=== PATIENT | female | born 1930 | race Two or more races ===

== ENCOUNTER 2018-01-24 14:29 | Emergency (ER) | payer OTHER ==
[~2018-01-24] VITALS: Ht 149.9 cm; Wt 59.0 kg
[~2018-01-24 14:29] MED LIST: COZAAR50 MG PO
== END 2018-01-24 19:53 | disposition home or self-care (01) ==
LOC: ER 14:29
DX: S81.822A Laceration with foreign body, left lower leg, initial encounter (principal); S00.83XA Contusion of other part of head, initial encounter; W18.09XA Striking against other object with subsequent fall, initial encounter; Y93.89 Activity, other specified; Y92.89 Other specified places as the place of occurrence of the external cause; Y99.8 Other external cause status

== ENCOUNTER 2018-02-03 08:41 | Emergency (ER) | payer OTHER ==
[~2018-02-03] VITALS: Ht 149.9 cm; Wt 61.2 kg
[2018-02-08] MEDS ORDERED: LEVAQUIN500 MG PO (09:56)
== END 2018-02-03 09:35 | disposition home or self-care (01) ==
LOC: ER 08:41
DX: Z48.02 Encounter for removal of sutures (principal); T81.89XA Other complications of procedures, not elsewhere classified, initial encounter

== ENCOUNTER 2019-02-21 08:41 | Outpatient (CLI) | payer OTHER ==
[~2019-02-21 08:41] MED LIST changes: +LEVAQUIN500 MG PO
== END 2019-02-21 14:44 | disposition home or self-care (01) ==
LOC: LAB 08:41
DX: E03.8 Other specified hypothyroidism (principal); N39.0 Urinary tract infection, site not specified; E55.9 Vitamin D deficiency, unspecified; D50.0 Iron deficiency anemia secondary to blood loss (chronic); E11.69 Type 2 diabetes mellitus with other specified complication; E78.00 Pure hypercholesterolemia, unspecified

== ENCOUNTER 2019-02-28 07:20 | Outpatient (CLI) | payer OTHER | END 2019-02-28 07:33 | disposition home or self-care (01) | LOC: TOM 07:20 | DX: R42 Dizziness and giddiness (principal) ==

== ENCOUNTER 2020-02-02 12:50 | Emergency (ER) | payer OTHER ==
[~2020-02-02] VITALS: Ht 152.4 cm; Wt 52.2 kg
[2020-02-02] MEDS ORDERED: COZAAR100 MG PO (13:04)
[2020-02-02] MEDS ORDERED: ASPIR 8181 MG PO (13:04)
[2020-02-02] MEDS ORDERED: ZETIA10 MG PO (13:04)
[2020-02-02] MEDS ORDERED: TYLENOL325 MG PO (13:04)
[2020-02-02] MEDS ORDERED: VITAMIN D22000 UNIT PO (13:05)
[2020-02-02] MEDS ORDERED: PRAVASTATIN SOD10 MG PO (13:05)
[2020-02-02] MEDS ORDERED: LEVO-T125 MCG PO (13:06)
[2020-02-02] MEDS ORDERED: DITROPAN XL10 MG PO (13:06)
[2020-02-02] MEDS ORDERED: SYNTHROID125 MCG PO (13:06)
== END 2020-02-02 17:45 | disposition home or self-care (01) ==
LOC: ER 12:50
DX: R42 Dizziness and giddiness (principal)

== ENCOUNTER 2020-12-13 13:25 | Emergency (ER) | payer OTHER ==
[~2020-12-13] VITALS: Ht 144.8 cm; Wt 61.2 kg
[~2020-12-13 13:25] MED LIST changes: +ASPIR 8181 MG PO; +COZAAR100 MG PO; +DITROPAN XL10 MG PO; +LEVO-T125 MCG PO; +PRAVASTATIN SOD10 MG PO; +SYNTHROID125 MCG PO; +TYLENOL325 MG PO; +VITAMIN D22000 UNIT PO; +ZETIA10 MG PO
== END 2020-12-15 16:46 | disposition home or self-care (01) ==
LOC: ER 13:25
DX: S70.02XA Contusion of left hip, initial encounter (principal); S70.01XA Contusion of right hip, initial encounter; M62.82 Rhabdomyolysis; R53.1 Weakness; R42 Dizziness and giddiness; G30.8 Other Alzheimer's disease; F02.80 Dementia in other diseases classified elsewhere, unspecified severity, without behavioral disturbance, psychotic disturbance, mood disturbance, and anxiety; W18.09XA Striking against other object with subsequent fall, initial encounter; Y93.89 Activity, other specified; Y92.018 Other place in single-family (private) house as the place of occurrence of the external cause; Y99.8 Other external cause status; Z60.2 Problems related to living alone